=== PATIENT | male | born 1955 | race Caucasian/White ===

== ENCOUNTER 2022-09-14 15:43 | Outpatient (OUT) | payer MEDICARE, OTHER, SELFPAY ==
[2022-09-14 16:18] LABS: Basophils Percent Auto 0.5 % (0.2-2.0); Eosinophils Absolute Auto 0.3 10^3/uL (0.0-0.7); Eosinophils Percent Auto 5.3 % (0.9-7.0); Hematocrit 24.3 % (42.0-54.0); Immature Granulocytes Abs Auto 0.02 10^3/uL (0.00-0.03); Immature Granulocytes Pct Auto 0.4 % (0.0-0.5); Lymphocytes Absolute Auto 0.8 10^3/uL (1.2-3.8); Lymphocytes Percent Auto 14.1 % (20.5-60.0); Mean Corpuscular HGB Conc 25.9 g/dL (29.9-35.2); Mean Corpuscular Hemoglobin 17.2 pg (25.9-34.0); Mean Corpuscular Volume 66.4 fL (80.0-94.0); Mean Platelet Volume 9.2 fL (9.5-13.5); Monocytes Absolute Auto 0.5 10^3/uL (0.3-0.8); Monocytes Percent Auto 9.9 % (1.7-12.0); Neutrophils Absolute Auto 3.8 10^3/uL (1.4-6.5); Neutrophils Percent Auto 69.8 % (43.0-75.0); Platelet Count 285 10^3/uL (150-450); Red Blood Count 3.66 10^6/uL (4.70-6.10); Red Cell Distribution Width 20.2 % (11.0-15.0); White Blood Count 5.5 10^3/uL (4.0-11.0)
[2022-09-14 16:22] LABS: Hemoglobin 6.3 g/dL (14.0-18.0)
== END 2022-09-14 15:44 | disposition home or self-care (01) ==
LOC: LAB 15:52
PROVIDERS: PCP Family Medicine; Visit Provider Family Medicine
DX: D50.9 Iron deficiency anemia, unspecified (principal)
CPT/HCPCS: 36415; 85025

== ENCOUNTER 2022-09-16 09:37 | Observation (INO) | payer MEDICARE, OTHER, SELFPAY ==
[2022-09-16] VITALS (11 sets, daily range): BP systolic 160–201; BP diastolic 69–89; PULSE 61–79; RESP 1–20; TEMP 36.4–37.2; O2SAT 94–99; BMI 32.8
--- NOTE | 2022-09-16 10:25 | P.HP_ITS ---
H&P: HPI History of Present Illness Chief complaint: ANEMIA Narrative: Patient was seen and evaluated in the office for his regular checkup, just fatigued, did routine outpatient labs and found to have a hemoglobin of less than 7. Reevaluated in the office and discussed options, with no known source of bleeding, denies melena patient was agreeable to observation admission for transfusion and monitoring cardiac function closely, history of coronary artery disease Review of Systems ROS Constitutional Denies: fever Eyes Denies: change in vision Ears, nose, mouth, and throat Denies: throat pain Cardiovascular Denies: chest pain or palpitations Respiratory Denies: shortness of breath or cough Gastrointestinal Denies: blood in stool [facility] Medical History (Updated 09/16/22 @ 10:16 by Marzena Handley) Surgical History Family History (Updated 09/16/22 @ 10:17 by Marzena Handley) Father Family history of diabetes mellitus Mother Family history of diabetes mellitus Brother Family history of diabetes mellitus Grandmother Family history of diabetes mellitus Social History (Updated 09/16/22 @ 10:20 by Marzena Handley) Within the past year, how often did you have a drink containing alcohol: monthly or less Within the past year, how many standard drinks containing alcohol did you have on a typical day: 1 or 2 Within the past year, how often did you have six or more drinks on one occasion: never Total score: 0 Score interpretation: A score less than 4 is consistent with normal alcohol consumption. Smoking status: Former smoker Non-prescribed substance use: denies use Previous occupational history: retired- [employer] Highest level of school completed/degree received: high school graduate Are you now , , , , never or living with a partner: In a typical week, how many times do you talk on the telephone with family, friends, or neighbors: twice per week How often do you get together with friends or relatives: twice per week How often do you attend cheondoism or mandaeism services: never Do you belong to any clubs or organizations such as cheondoism groups unions, fraternal or athletic groups, or school groups: no Total score: 2 Score interpretation: A score of greater than or equal to 2 indicates the lowest level of social isolation. Little interest or pleasure in doing things: not at all Feeling down, depressed, or hopeless: not at all Feel stressed/tense/nervous/anxious/difficulty sleeping: not at all Do you think of yourself as: straight/heterosexual Gender Identity: male Meds Home Medications and Allergies Home Medications Medication Instructions Recorded Confirmed Type atorvastatin 40 mg tablet 40 mg PO DAILY 09/16/22 09/16/22 History clopidogrel 75 mg tablet 75 mg PO DAILY 09/16/22 09/16/22 History escitalopram oxalate 20 mg tablet 20 mg PO DAILY 09/16/22 09/16/22 History (Lexapro) insulin NPH isoph U-100 human 100 40 unit subcut BID 09/16/22 09/16/22 History unit/mL (3 mL) subcutaneous pen (Novolin N FlexPen) insulin aspart U-100 100 unit/mL 1 sliding scale dose subcut ACHS 09/16/22 09/16/22 History (3 mL) subcutaneous pen (Novolog FlexPen U-100 Insulin aspart) lisinopril 10 mg tablet 10 mg PO DAILY 09/16/22 09/16/22 History metoprolol succinate 100 mg 100 mg PO DAILY 09/16/22 09/16/22 History tablet,extended release 24 hr pantoprazole 40 mg tablet,delayed 40 mg PO DAILY 09/16/22 09/16/22 History release pramipexole 0.5 mg tablet 0.5 mg PO BEDTIME 09/16/22 09/16/22 History Allergies Allergy/AdvReac Type Severity Reaction Status Date / Time No Known Drug Allergies Allergy Verified 09/16/22 16:43 Exam Constitutional Vital Signs, click to edit/add: Last Vital Signs Temp 98.5 F 09/17/22 05:16 Pulse 66 09/17/22 05:16 Resp 20 09/17/22 05:16 BP 168/82 H 09/17/22 05:16 Pulse Ox 96 09/17/22 06:21 O2 Del Method Room Air 09/17/22 06:21 Documenting provider has reviewed patient's vital signs: yes Common normals: no apparent distress Nutritional appearance: obese Chest Common normals: inspection of chest normal Respiratory Common normals: normal respiratory effort, no retractions and clear to auscultation bilaterally Cardio Common normals: regular rate, regular rhythm and no murmurs Results Labs Labs: Short CBC 09/16/22 09/16/22 09/17/22 Range/Units 12:05 19:00 04:10 WBC 5.2 7.1 5.9 (4.0-11.0) 10^3/uL Hgb 6.2 L* 8.0 L 7.7 L (14.0-18.0) g/dL Hct 24.0 L 29.0 L 27.8 L (42.0-54.0) % Plt Count 274 296 299 (150-450) 10^3/uL BMP 09/16/22 09/17/22 12:07 04:10 Sodium 138 138 Potassium 3.0 L 3.0 L Chloride 101 102 Carbon Dioxide 26.8 28.5 BUN 10.0 8.0 Creatinine 0.90 0.92 Glucose 203 H 166 H Calcium 6.9 L 7.3 L Assessment and Plan Assessment and Plan (1) Anemia: (2) Diabetes: (3) Heart attack: (4) Hypertension: Plan Acute blood loss anemia-uncertain source. Denies melena, denies hematochezia, possibly a production issue, type cross and transfuse 2 units and reevaluate in a.m. Hypertension-continue with home medications and monitor closely Coronary artery disease with a history of heart failure-check BNP,Diuretics in between PRBCs Patient with likely just a 1 night stay so we will place patient observation
[2022-09-16 12:18] LABS: Basophils Percent Auto 0.8 % (0.2-2.0); Eosinophils Absolute Auto 0.3 10^3/uL (0.0-0.7); Eosinophils Percent Auto 4.8 % (0.9-7.0); Immature Granulocytes Abs Auto 0.02 10^3/uL (0.00-0.03); Immature Granulocytes Pct Auto 0.4 % (0.0-0.5); Lymphocytes Absolute Auto 0.8 10^3/uL (1.2-3.8); Lymphocytes Percent Auto 14.6 % (20.5-60.0); Mean Corpuscular HGB Conc 25.8 g/dL (29.9-35.2); Mean Corpuscular Hemoglobin 17.1 pg (25.9-34.0); Mean Corpuscular Volume 66.3 fL (80.0-94.0); Mean Platelet Volume 9.7 fL (9.5-13.5); Monocytes Absolute Auto 0.5 10^3/uL (0.3-0.8); Monocytes Percent Auto 9.4 % (1.7-12.0); Neutrophils Absolute Auto 3.6 10^3/uL (1.4-6.5); Platelet Count 274 10^3/uL (150-450); Red Blood Count 3.62 10^6/uL (4.70-6.10); Red Cell Distribution Width 20.1 % (11.0-15.0); White Blood Count 5.2 10^3/uL (4.0-11.0)
[2022-09-16 12:33] LABS: Hemoglobin 6.2 g/dL (14.0-18.0)
[2022-09-16 12:37] LABS: INR 1.25; Partial Thromboplastin Time 32.5 sec (22.3-36.2); Prothrombin Time 13.1 sec (9.0-11.6)
[2022-09-16 12:47] LABS: Anion Gap 13.2; BUN Creatinine Ratio 11.1; Calcium 6.9 mg/dL (8.5-10.1); Carbon Dioxide 26.8 mmol/L (21.0-32.0); Chloride 101 mmol/L (98-107); Estimated GFR (African America >60 (>=60); Estimated GFR (Non-African Ame >60 (>=60); Glucose 203 mg/dL (74-106); Sodium 138 mmol/L (136-145)
[2022-09-16] MEDS: 0.9 % SODIUM CHLORIDE 250 ML IV.SOLN IV (14:08)
[2022-09-16] MEDS: INSULIN ASPART 300 UNIT/3 ML PEN SUBQ ×2 (16:24→21:05)
[2022-09-16] MEDS: FUROSEMIDE 20 MG/2 ML VIAL IV (16:24)
[2022-09-16] MEDS: HYDRALAZINE HCL 20 MG/ML VIAL 10 MG IVP (16:24)
[2022-09-16 19:08] LABS: Basophils Percent Auto 0.6 % (0.2-2.0); Eosinophils Absolute Auto 0.3 10^3/uL (0.0-0.7); Eosinophils Percent Auto 4.6 % (0.9-7.0); Immature Granulocytes Abs Auto 0.01 10^3/uL (0.00-0.03); Immature Granulocytes Pct Auto 0.1 % (0.0-0.5); Lymphocytes Absolute Auto 0.8 10^3/uL (1.2-3.8); Lymphocytes Percent Auto 10.6 % (20.5-60.0); Mean Corpuscular HGB Conc 27.6 g/dL (29.9-35.2); Mean Corpuscular Hemoglobin 18.7 pg (25.9-34.0); Mean Corpuscular Volume 67.9 fL (80.0-94.0); Monocytes Absolute Auto 0.6 10^3/uL (0.3-0.8); Monocytes Percent Auto 7.7 % (1.7-12.0); Neutrophils Absolute Auto 5.4 10^3/uL (1.4-6.5); Neutrophils Percent Auto 76.4 % (43.0-75.0); Platelet Count 296 10^3/uL (150-450); Red Blood Count 4.27 10^6/uL (4.70-6.10); White Blood Count 7.1 10^3/uL (4.0-11.0)
[2022-09-16] MEDS: PRAMIPEXOLE 1 MG TABLET 0.5 MG PO (21:06)
[2022-09-17] VITALS (9 sets, daily range): BP systolic 148–188; BP diastolic 70–82; PULSE 60–68; RESP 16–20; TEMP 36.7–36.9; O2SAT 96–97
[2022-09-17 04:57] LABS: Basophils Percent Auto 0.7 % (0.2-2.0); Eosinophils Absolute Auto 0.3 10^3/uL (0.0-0.7); Eosinophils Percent Auto 4.6 % (0.9-7.0); Hematocrit 27.8 % (42.0-54.0); Hemoglobin 7.7 g/dL (14.0-18.0); Immature Granulocytes Abs Auto 0.02 10^3/uL (0.00-0.03); Immature Granulocytes Pct Auto 0.3 % (0.0-0.5); Lymphocytes Absolute Auto 0.7 10^3/uL (1.2-3.8); Mean Corpuscular HGB Conc 27.7 g/dL (29.9-35.2); Mean Corpuscular Hemoglobin 18.6 pg (25.9-34.0); Mean Corpuscular Volume 67.3 fL (80.0-94.0); Mean Platelet Volume 9.8 fL (9.5-13.5); Monocytes Absolute Auto 0.5 10^3/uL (0.3-0.8); Neutrophils Absolute Auto 4.5 10^3/uL (1.4-6.5); Neutrophils Percent Auto 75.4 % (43.0-75.0); Platelet Count 299 10^3/uL (150-450); Red Blood Count 4.13 10^6/uL (4.70-6.10); Red Cell Distribution Width 21.5 % (11.0-15.0); White Blood Count 5.9 10^3/uL (4.0-11.0)
[2022-09-17 05:01] LABS: Anion Gap 10.5; BUN Creatinine Ratio 8.7; Calcium 7.3 mg/dL (8.5-10.1); Carbon Dioxide 28.5 mmol/L (21.0-32.0); Chloride 102 mmol/L (98-107); Estimated GFR (African America >60 (>=60); Estimated GFR (Non-African Ame >60 (>=60); Glucose 166 mg/dL (74-106); Sodium 138 mmol/L (136-145)
[2022-09-17] MEDS: POTASSIUM CHLORIDE 10 MEQ ER TABLET 20 MEQ PO (08:57)
[2022-09-17] MEDS: ATORVASTATIN CALCIUM 40 MG TABLET PO (08:57)
[2022-09-17] MEDS: ESCITALOPRAM 10 MG TABLET 20 MG PO (08:58)
[2022-09-17] MEDS: LISINOPRIL 10 MG TABLET PO (08:58)
[2022-09-17] MEDS: FUROSEMIDE 40 MG/4 ML VIAL IVP (08:58)
[2022-09-17] MEDS: METOPROLOL SUCCINATE 100 MG TAB.ER.24H PO (08:58)
[2022-09-17] MEDS: OMEPRAZOLE 40 MG CAPSULE.DR PO (08:58)
[2022-09-17] MEDS: INSULIN ASPART 300 UNIT/3 ML PEN SUBQ ×2 (08:59→12:07)
--- NOTE | 2022-09-17 10:25 | PM.DS1 ---
DS: Providers Provider Date of admission: 09/16/22 09:37 Primary care physician: Perez Lewis MD DS: Diagnosis Discharge Diagnosis (1) Anemia: (2) Diabetes: (3) Heart attack: (4) Hypertension: DS: Summary Hospital Course Hospital Course: Patient admitted overnight for observation for transfusion of PRBCs. Unable to do safely as an outpatient secondary to his history of coronary artery disease with acute combined congestive heart failure. Patient was given 2 units of PRBCs. His hemoglobin did come up but was down slightly this morning. He will get 1 more unit today. IV Lasix this morning. Discharge to home. Follow-up Monday with repeat blood count, consult to surgery as an outpatient for EGD and colonoscopy. Medications see list. Follow-up with me if me as needed Status at Discharge Functional status at discharge: independent ambulation Overall status at discharge: patient is back to baseline Time Spent with Patient Time attestation: Total time spent providing and/or coordinating discharge services: Exam Constitutional Vital Signs, click to edit/add: Last Vital Signs Temp 98.5 F 09/17/22 05:16 Pulse 66 09/17/22 05:16 Resp 20 09/17/22 05:16 BP 168/82 H 09/17/22 05:16 Pulse Ox 96 09/17/22 06:21 O2 Del Method Room Air 09/17/22 06:21 Documenting provider has reviewed patient's vital signs: yes Common normals: no apparent distress Nutritional appearance: obese Chest Common normals: inspection of chest normal Respiratory Common normals: normal respiratory effort, no retractions and clear to auscultation bilaterally Cardio Common normals: regular rate, regular rhythm and no murmurs DS: Data Data Completed and Pending Labs on day of discharge: Labs from last 24 hours 09/17/22 09/16/22 09/16/22 04:10 19:00 12:07 WBC 5.9 7.1 RBC 4.13 L 4.27 L Hgb 7.7 L 8.0 L Hct 27.8 L 29.0 L MCV 67.3 L 67.9 L MCH 18.6 L 18.7 L MCHC 27.7 L 27.6 L RDW 21.5 H 22.0 H Plt Count 299 296 MPV 9.8 9.0 L Neut % (Auto) 75.4 H 76.4 H Lymph % (Auto) 11.0 L 10.6 L Mathews % (Auto) 8.0 7.7 Eos % (Auto) 4.6 4.6 Baso % (Auto) 0.7 0.6 Neut # (Auto) 4.5 5.4 Lymph # (Auto) 0.7 L 0.8 L Mathews # (Auto) 0.5 0.6 Eos # (Auto) 0.3 0.3 Baso # (Auto) 0.0 0.0 Abs Immat Gran (auto) 0.02 0.01 Imm/Tot Granulo (auto) 0.3 0.1 PT 13.1 H INR 1.25 APTT 32.5 Sodium 138 138 Potassium 3.0 L 3.0 L Chloride 102 101 Carbon Dioxide 28.5 26.8 Anion Gap 10.5 13.2 BUN 8.0 10.0 Creatinine 0.92 0.90 Est GFR ( Amer) >60 >60 Est GFR (Non-Af Amer) >60 >60 BUN/Creatinine Ratio 8.7 11.1 Glucose 166 H 203 H Calcium 7.3 L 6.9 L NT-Pro-B Natriuret Pep 3742.0 H* Blood Type A Positive Antibody Screen Negative Crossmatch See Detail 09/16/22 12:05 WBC 5.2 RBC 3.62 L Hgb 6.2 L* Hct 24.0 L MCV 66.3 L MCH 17.1 L MCHC 25.8 L RDW 20.1 H Plt Count 274 MPV 9.7 Neut % (Auto) 70.0 Lymph % (Auto) 14.6 L Mathews % (Auto) 9.4 Eos % (Auto) 4.8 Baso % (Auto) 0.8 Neut # (Auto) 3.6 Lymph # (Auto) 0.8 L Mathews # (Auto) 0.5 Eos # (Auto) 0.3 Baso # (Auto) 0.0 Abs Immat Gran (auto) 0.02 Imm/Tot Granulo (auto) 0.4 PT INR APTT Sodium Potassium Chloride Carbon Dioxide Anion Gap BUN Creatinine Est GFR ( Amer) Est GFR (Non-Af Amer) BUN/Creatinine Ratio Glucose Calcium NT-Pro-B Natriuret Pep Blood Type Antibody Screen Crossmatch Discharge Plan Discharge Discharge Medications: No Action atorvastatin 40 mg tablet 40 mg PO DAILY Rx Instructions: LAST FILL 03/09/22 FOR 30 DAY SUPPLY clopidogrel 75 mg tablet 75 mg PO DAILY escitalopram oxalate [Lexapro] 20 mg tablet 20 mg PO DAILY Rx Instructions: LAST FILL 02/07/2022 FOR 30 DAYS insulin aspart U-100 [Novolog FlexPen U-100 Insulin] 100 unit/mL (3 mL) insulin pen 1 sliding scale dose SUBCUT ACHS Novolin N FlexPen 100 unit/mL (3 mL) insulin pen 40 unit SUBCUT BID lisinopril 10 mg tablet 10 mg PO DAILY metoprolol succinate 100 mg tablet extended release 24 hr 100 mg PO DAILY pantoprazole 40 mg tablet,delayed release (DR/EC) 40 mg PO DAILY pramipexole 0.5 mg tablet 0.5 mg PO BEDTIME
--- NOTE | 2022-09-22 14:04 | CM.DCFOLLOWU ---
Person spoke with: Jos How are you feeling? Much better How is your pain? No pain Did you understand your discharge instructions? yes Do you have any questions about your discharge instructions? I had blood work done on Tues- enocuraged pt to make f/u appt Were you given any prescriptions at discharge? no Were you able to get your prescriptions filled? N/A Do you understand how to take your medications as ordered? yes Do you have any questions about your follow up appointment and do you plan to keep your follow up appointment? Need to schedule Is there anything else that you would like to discuss? Not at this time Questions/Comments/Concerns/Other:
== END 2022-09-17 16:15 | disposition home or self-care (01) ==
PROVIDERS: Admitting Provider Family Medicine; PCP Family Medicine; Visit Provider Family Medicine
DX: D62 Acute posthemorrhagic anemia (principal); I11.0 Hypertensive heart disease with heart failure; I50.41 Acute combined systolic (congestive) and diastolic (congestive) heart failure; I25.10 Atherosclerotic heart disease of native coronary artery without angina pectoris; E66.9 Obesity, unspecified; I25.2 Old myocardial infarction; Z68.32 Body mass index [BMI] 32.0-32.9, adult; Z87.891 Personal history of nicotine dependence; Z79.899 Other long term (current) drug therapy; Z79.4 Long term (current) use of insulin
CPT/HCPCS: 36415; 36430; 80048; 83880; 85025; 85610; 85730; 86850; 86900; 86901; 86920; 94667; 94668; 94761; 96374; 96375; 96376; G0328; G0378; G0379; P9016

== ENCOUNTER 2022-09-20 08:29 | Outpatient (OUT) | payer MEDICARE, OTHER, SELFPAY ==
[2022-09-20 08:51] LABS: Hematocrit 36.3 % (42.0-54.0); Mean Corpuscular HGB Conc 27.5 g/dL (29.9-35.2); Mean Corpuscular Hemoglobin 19.5 pg (25.9-34.0); Mean Corpuscular Volume 70.8 fL (80.0-94.0); Mean Platelet Volume 9.1 fL (9.5-13.5); Platelet Count 358 10^3/uL (150-450); Red Blood Count 5.13 10^6/uL (4.70-6.10); Red Cell Distribution Width 24.3 % (11.0-15.0); White Blood Count 6.1 10^3/uL (4.0-11.0)
[2022-09-20 09:36] LABS: Segmented Neut Absolute Manual 4.51 10^3/uL (1.4-6.5)
[2022-09-20 09:37] LABS: Basophils Abs Manual 0.06 10^3/uL (0.00-0.10); Eosinophils Absolute Manual 0.36 10^3/uL (0.00-0.70); Lymphocytes Absolute Manual 0.73 10^3/uL (1.20-3.80); Monocytes Absolute Manual 0.42 10^3/uL (0.30-0.80)
[2022-09-20 09:40] LABS: Anisocytosis 1+; Poikilocytosis 1+
[2022-09-20 09:41] LABS: Ovalocytes 1+; Tear Drop Cells 1+
== END 2022-09-20 08:30 | disposition home or self-care (01) ==
PROVIDERS: PCP Family Medicine; Visit Provider Family Medicine
DX: D50.9 Iron deficiency anemia, unspecified (principal)
CPT/HCPCS: 36415; 85025; 85027

== ENCOUNTER 2023-08-12 06:32 | Outpatient (OUT) | payer MEDICARE, OTHER, SELFPAY ==
[2023-08-12 06:56] LABS: Estimated Average Glucose 226 mg/dL; Glycohemoglobin A1C 9.5 % (4.5-6.2)
[2023-08-12 07:27] LABS: Chol HDL Ratio 3.7; Cholesterol 170 mg/dL (<=200); HDL Cholesterol 46 mg/dL (40-60); LDL Cholesterol Calculated 97.4 mg/dL; Prostate Specific Antigen Scrn 0.73 ng/mL (<=4.00); Thyroid Stimulating Hormone 1.934 uIU/mL (0.358-3.740); Triglycerides 133 mg/dL (<=150); VLDL CHOLESTEROL 26.6 mg/dL
== END 2023-08-12 06:33 | disposition home or self-care (01) ==
LOC: LAB 06:32
PROVIDERS: PCP Family Medicine; Visit Provider Family Medicine
DX: E78.5 Hyperlipidemia, unspecified (principal); R53.83 Other fatigue; Z12.5 Encounter for screening for malignant neoplasm of prostate; R73.09 Other abnormal glucose
CPT/HCPCS: 36415; 80061; 83036; 84436; 84443; 84481; G0103